=== PATIENT | female | born 1995 | race Caucasian/White ===

== ENCOUNTER → 2017-06-14 | Outpatient (CLI) | payer BC ==
--- NOTE | 2017-06-14 10:20 | Diagnostic Imaging Report ---
PROCEDURE: US Gallbladder. TECHNIQUE: Multiple real-time grayscale images were obtained over the right upper quadrant in various projections. INDICATION: Pain. FINDINGS: Liver appeared normal. The gallbladder normal. There is no bile duct dilatation. The pancreas had an unremarkable appearance where visualized. There is no intra-or extrahepatic bile duct dilatation and the unobstructed right kidney is normal in size, cortical thickness and echotexture. There is no ascites. IMPRESSION: Normal right upper quadrant ultrasound. Dictated by: Dictated on workstation # [id number]
== END ==
LOC: RAD 09:38
PROVIDERS: ATTEND Family Medicine
DX: R10.9 Unspecified abdominal pain (principal)
CPT/HCPCS: 76705

== ENCOUNTER → 2020-09-17 | Outpatient (CLI) | payer BC, OTHER | LOC: MERGE 09:33 → LABNPT 09:33 | PROVIDERS: ATTEND Obstetrics & Gynecology | DX: Z34.03 Encounter for supervision of normal first pregnancy, third trimester (principal); Z3A.00 Weeks of gestation of pregnancy not specified | CPT/HCPCS: 82570; 84156 ==

== ENCOUNTER → 2020-10-04 | Outpatient (CLI) | payer BC ==
[2020-10-06 06:15] LABS: URINE CREATININE FOR RATIO 29 MG/DL (30-125); URINE PROTEIN FOR RATIO ONLY < 6 MG/DL (6-12)
== END ==
LOC: LABNPT 16:22
PROVIDERS: ATTEND Obstetrics & Gynecology
DX: O14.93 Unspecified pre-eclampsia, third trimester (principal)
CPT/HCPCS: 82570; 84156

== ENCOUNTER 2020-10-28 07:00 | Inpatient (IN) | payer BC ==
[~2020-10-28] VITALS: Ht 175.3 cm; Wt 77.3 kg
[2020-10-28] VITALS (58 sets, daily range): BP systolic 105–150; BP diastolic 60–91
[2020-10-28] MEDS ORDERED: WATER (STERILE) FOR INJECTION 20 ML ONE (07:47)
[2020-10-28] MEDS ORDERED: AMPICILLIN 2,000 MG/14.8 ML (IV USE) ONE (07:47)
[2020-10-28 07:58] LABS: BASOPHILS % (AUTO) 0 % (0-10); EOSINOPHILS % (AUTO) 1 % (0-10); HEMATOCRIT 42 % (35-52); HEMOGLOBIN 14.2 g/dL (11.5-16.0); LYMPHOCYTES # (AUTO) 1.2 10^3/uL (1.0-4.0); LYMPHOCYTES % (AUTO) 19 % (12-44); MEAN CORPUSCULAR HEMOGLOBIN 31 pg (25-34); MEAN CORPUSCULAR HGB CONC 34 g/dL (32-36); MEAN CORPUSCULAR VOLUME 92 fL (80-99); MEAN PLATELET VOLUME 11.7 fL (9.0-12.2); MONOCYTES # (AUTO) 0.3 10^3/uL (0.0-1.0); MONOCYTES % (AUTO) 5 % (0-12); NEUTROPHILS # (AUTO) 4.7 10^3/uL (1.8-7.8); NEUTROPHILS % (AUTO) 75 % (42-75); PLATELET COUNT 166 10^3/uL (130-400); WHITE BLOOD COUNT 6.3 10^3/uL (4.3-11.0)
[2020-10-28] MEDS ORDERED: OXYTOCIN PRE-MIX DRIP 500 ML IV SCH ×3 (08:00→19:45)
[2020-10-28] MEDS ORDERED: LIDOCAINE/EPI 2% 1:200,00 (XYLOCAINE) 20 ML VIAL INJ PRN (08:00)
[2020-10-28] MEDS ORDERED: AMPICILLIN FOR IV USE 2,000 MG in WATER (STERILE) FOR INJECTION 14.8 ML IV SCH (08:00)
[2020-10-28] MEDS: D5 LR IV SOLUTION 1,000 ML IV SCH ×2 (08:03→15:48)
[2020-10-28 08:55] LABS: BILIRUBIN,URINE NEGATIVE (NEGATIVE); CLARITY,URINE SL CLOUDY; COLOR,URINE YELLOW; GLUCOSE, URINE (UA) NEGATIVE (NEGATIVE); KETONES,URINE NEGATIVE (NEGATIVE); LEUKOCYTE ESTERASE ,URINE 3+ (NEGATIVE); NITRITE,URINE NEGATIVE (NEGATIVE); PROTEIN,URINE NEGATIVE (NEGATIVE)
[2020-10-28 09:09] LABS: BACTERIA,URINE FEW /HPF; WBC,URINE 50-100 /HPF
--- NOTE | 2020-10-28 09:45 | History & Physical ---
History and Physical Date Seen by Provider: October 28, 2020 Time Seen by Provider: 09:43 This patient is a 25-year-old 1 white female who presents for induction of labor. Her is complicated by her history of optical stroke. Patient is on chronic anticoagulation with Lovenox. Her last dose of Lovenox was yesterday morning. She has held her Lovenox now pending delivery Patient denies rupture membranes or bleeding. She did have a group B strep culture at 35 weeks gestation that was returned positive. Allergies are to azithromycin Medications are vitamins and until yesterday morning Lovenox 40 mg subcu daily Medical social and surgical history is all per the antepartum record HEENT exam is normal Neck is supple no lymphadenopathy no thyromegaly Abdomen is gravid soft nontender nondistended Extremities show no clubbing cyanosis. There is no Homans' sign. Pelvic exam shows a cervix now 1 cm dilated 50% effaced 0-1 station vertex presentation with intact membranes. Amniotomy was attempted monitor shows occasional contractions now with patient currently on Pitocin. There is a normal heart rate pattern Assessment and plan term at 38 weeks gestation in a patient with history of chronic anticoagulation secondary to optical stroke. Her anticoagulation has been held in anticipation of induction this morning which is ongoing now with Pitocin. We anticipate a vaginal delivery but would be prepared for if needed 38-week complicated by chronic anticoagulation Allergies and Home Medications Allergies Coded Allergies: azithromycin (Verified Allergy, Unknown, 10/28/20) Superficial blood clots Patient Home Medication List Home Medication List Reviewed: Yes GRETA BROCK MD October 28, 2020 09:45
[2020-10-28] MEDS ORDERED: PREN1TAB79 PO (11:00)
[2020-10-28] MEDS ORDERED: ENOX40DI13 SQ (11:00)
[2020-10-28] MEDS: AMPICILLIN FOR IV USE 1,000 MG in WATER (STERILE) FOR INJECTION 7.4 ML IV SCH ×2 (12:05→15:48)
[2020-10-28] MEDS ORDERED: fentaNYL 2 mcg/ml BUPIVA 0.125 100 ML ONE (14:35)
[2020-10-28] MEDS ORDERED: fentaNYL INJ 100 MCG/2 ML AMP ONE (15:06)
[2020-10-28] MEDS ORDERED: BUPIVACAINE 0.25% 30 ML (SENSORCAINE) VIAL ONE (15:06)
[2020-10-28] MEDS: CATHETER FLUSH 10 ML SYR IV SCH (15:49)
[2020-10-28] MEDS ORDERED: EPIDURAL (fentaNYL 2 MCG/ML BUPIVA 0.125%)100 ML BAG EPI PRN (16:15)
[2020-10-28] MEDS ORDERED: diphenhydrAMINE 50 MG/ML INJ (BENADRYL) IV PRN (16:15)
[2020-10-28] MEDS ORDERED: METOCLOPRAMIDE INJ 10 MG/2 ML (REGLAN) IV PRN (16:15)
[2020-10-28] MEDS ORDERED: NALOXONE 0.4 MG/ML 1 ML (NARCAN) VIAL IV PRN ×2 (16:15)
[2020-10-28] MEDS ORDERED: ONDANSETRON 4 MG/2 ML (SDV) Z0FRAN IV PRN (16:15)
[2020-10-28] MEDS ORDERED: LACTATED RINGERS 1,000 ML IV SCH (16:15)
[2020-10-28] MEDS ORDERED: METHYLERGONOVINE 0.2 MG/ML (METHERGINE) AMP ONE (19:01)
[2020-10-28] MEDS ORDERED: ONDANSETRON 4 MG/2 ML (SDV) Z0FRAN IVP PRN (19:45)
[2020-10-28] MEDS ORDERED: BENZOCAINE/MENTHOL (DERMOPLAST) 56 ML CAN TP PRN (19:45)
[2020-10-28] MEDS ORDERED: METHYLERGONOVINE 0.2 MG/ML (METHERGINE) AMP IM ONE (19:45)
[2020-10-28] MEDS ORDERED: MEASLES,MUMPS,RUBELLA 1 EA INJ SC ONE (19:45)
[2020-10-28] MEDS ORDERED: oxyCODONE/APAP 5/325MG (PERCOCET 5) TABLET PO PRN (19:45)
[2020-10-28] MEDS: KETOROLAC 30 MG/ML VIAL IVP SCH (21:00)
[2020-10-28] MEDS: DOCUSATE SODIUM 100 MG (COLACE) CAP PO SCH (22:42)
[2020-10-28] MEDS ORDERED: WITCH HAZEL(TUCKS) 40 EA JAR TOP PRN (23:45)
[2020-10-28] MEDS ORDERED: DIBUCAINE 1% OINTMENT 30 GM TUBE TOP PRN (23:45)
[2020-10-29] MEDS: CATHETER FLUSH 10 ML SYR IV SCH (01:44)
--- NOTE | 2020-10-29 02:09 | OPERATIVE REPORT ---
DATE OF SERVICE: 10/28/2020 DELIVERY NOTE The patient delivered by term spontaneous vaginal delivery a viable female infant with Apgars of 8 and 9 at 1 and 5 minutes respectively, weight of 6 pounds 5 ounces, time of 1859 and a cord blood pH of 7.30. The infant was delivered over multiple lacerations as well as a partial midline episiotomy. The patient sustained bilateral periurethral lacerations, several lacerations of the hymen and of the posterior fourchette. Episiotomy was performed as the entire perineum and introitus was beginning to shred in multiple areas and directions, the episiotomy allowed for control of the separation of the tissue. The delivery was accomplished fairly promptly after enough relaxation had occurred in the canal as a result of the tearing, shredding, and the episiotomy. The was bulb suctioned on delivery of the head and again on completion of delivery. Umbilical cord when pulseless was doubly clamped, father cut the cord, the baby was passed to mom's abdomen. The placenta delivered fairly promptly spontaneously Kristal. The patient had a fairly notable uterine atony with brisk bleeding that responded transiently to manual manipulation of the uterus and IV Pitocin; however, recurred fairly promptly with the blood loss approximately 500 mL. The patient was given a single dose of IM Methergine and the uterine cavity was explored. There was some membranes adherent in the uterine cavity that were removed with ring clamps. The uterus contracted nicely and then stayed contracted nicely since that time. The perineal lacerations and right sulcus laceration as well as the partial episiotomy was repaired in the usual manner with a single suture of 3-0 Vicryl Rapide. Good reapproximation was achieved. There were several small superficial lacerations in the posterior fourchette and then the lateral vaginal jovel that were hemostatic, were not full thickness and were left to heal on their own. There was a 1 to 1.5 cm full thickness laceration, right periurethral that was bleeding. This was repaired with 3-0 Vicryl Rapide suture as well and there was a laceration extending to the full length of the introitus on the left medial to the left labia minora superficially and majora inferiorly. This was full thickness as well and it was repaired with a running locked suture of 3-0 Vicryl Rapide. Good hemostasis was achieved. Good reapproximation of the repair sites was achieved. The patient tolerated the repair well. The delivery and repair were accomplished under the episiotomy with augmented in the repair sites with 1% lidocaine with epinephrine. A total of 20 mL was used. Sponge and needle counts were correct on completion of delivery and repair. Blood loss was estimated around 500 mL. The patient tolerated the delivery well and remained in the LDR for recovery. The baby remained in the LDR with the mom. Job ID: [id number] DocumentID: [id number] Dictated Date: 10/28/2020 19:30:59 Shake Splitter Date: 10/29/2020 02:08:34 Dictated By: GRETA BROCK MD MTDD
[2020-10-29] MEDS: KETOROLAC 30 MG/ML VIAL IVP SCH (04:59)
[2020-10-29 05:00] VITALS: BP 105/67
[2020-10-29] MEDS ORDERED: OXYC1TAB87 PO (07:40)
[2020-10-29] MEDS ORDERED: IBUP-1780 PO (07:40)
[2020-10-29] MEDS ORDERED: DCS100C PO (07:40)
--- NOTE | 2020-10-29 07:41 | Discharge Inst-Surgical ---
Discharge Inst-Surgical Depart Medication/Instructions New, Converted or Re-Newed RX: RX on Chart Consults/Follow Up Patient Instructions: As directed Orders & Referrals Follow Up Appt: Call to make follow up appt. for patient in 4 weeks. Activity Per routine post vaginal delivery instructions. Please call in RX to patient pharmacy. Diet as tolerated Patient may shower or tub bathe as desired. Activity Activity as Tolerated: No Diet Discharge Diet: No Restrictions GRETA BROCK MD October 29, 2020 07:41
--- NOTE | 2020-10-29 07:46 | Progress Note ---
Standard Progress Note Progress Notes/Assess & Plan Date Seen by a Provider: October 29, 2020 Time Seen by a Provider: 07:45 Progress/Assessment & Plan This patient is without complaint. She is ambulating, voiding, tolerating oral intake and has good pain control. Vital Signs 10/28/20 10/29/20 18:45 05:00 Temp 36.9 Pulse 75 Resp 18 B/P (MAP) 105/67 (80) Pulse Ox 100 O2 Delivery Room Air Vital signs are stable. Patient is afebrile. This is firm below the umbilicus and nontender. Extremities show no clubbing or cyanosis. There is no Homans' sign. Assessment and plan day #1 status post term spontaneous vaginal delivery at 38 weeks gestation. Patient is doing well will have routine convalescent care Final Diagnosis 38-week spontaneous vaginal delivery GRETA BROCK MD October 29, 2020 07:46
[2020-10-29] MEDS: DOCUSATE SODIUM 100 MG (COLACE) CAP PO SCH ×2 (09:08→20:52)
[2020-10-29 09:13] VITALS: BP 109/68
[2020-10-29] MEDS ORDERED: IBUPROFEN 800 MG (MOTRIN) TAB PO ONE (11:16)
[2020-10-29 12:00] VITALS: BP 121/70
[2020-10-29 12:24] LABS: BILIRUBIN,URINE NEGATIVE (NEGATIVE); CLARITY,URINE CLEAR; COLOR,URINE YELLOW; GLUCOSE, URINE (UA) NEGATIVE (NEGATIVE); KETONES,URINE NEGATIVE (NEGATIVE); LEUKOCYTE ESTERASE ,URINE NEGATIVE (NEGATIVE); NITRITE,URINE NEGATIVE (NEGATIVE); PH,URINE 6.5 (5-9); PROTEIN,URINE NEGATIVE (NEGATIVE)
[2020-10-29 12:31] LABS: BACTERIA,URINE NEGATIVE /HPF; SQUAMOUS EPITHELIAL CELL,UR RARE /HPF
[2020-10-29 16:45] VITALS: BP 117/71
[2020-10-29] MEDS: IBUPROFEN 800 MG (MOTRIN) TAB PO SCH (19:58)
[2020-10-29 20:49] VITALS: BP 108/71
[2020-10-30] MEDS: IBUPROFEN 800 MG (MOTRIN) TAB PO SCH ×2 (02:09→09:11)
[2020-10-30 02:14] VITALS: BP 90/55
[2020-10-30 06:22] VITALS: BP 93/50
[2020-10-30 09:00] VITALS: BP 117/62
[2020-10-30] MEDS: DOCUSATE SODIUM 100 MG (COLACE) CAP PO SCH (09:11)
== END 2020-10-30 14:35 | disposition home or self-care (01) | DRG 806 ==
LOC: LDRP 07:01
PROVIDERS: ADMIT Obstetrics & Gynecology; ATTEND Obstetrics & Gynecology
PROC: 10E0XZZ Delivery of Products of Conception, External Approach (ICD-10-PCS; principal; 2020-10-28)
PROC: 0W8NXZZ Division of Female Perineum, External Approach (ICD-10-PCS; 2020-10-28)
PROC: 3E033VJ Introduction of Other Hormone into Peripheral Vein, Percutaneous Approach (ICD-10-PCS; 2020-10-28)
DX: O99.12 Other diseases of the blood and blood-forming organs and certain disorders involving the immune mechanism complicating childbirth (principal); D68.318 Other hemorrhagic disorder due to intrinsic circulating anticoagulants, antibodies, or inhibitors; Z37.0 Single live birth; Z3A.38 38 weeks gestation of pregnancy
CPT/HCPCS: 36415; 81000; 85025; 86850; 86900; 86901; 87088

== ENCOUNTER 2022-03-31 07:00 | Inpatient (IN) | payer BC ==
[~2022-03-31] VITALS: Ht 175.3 cm; Wt 80.8 kg
[2022-03-31] VITALS (50 sets, daily range): BP systolic 100–135; BP diastolic 56–89
[~2022-03-31 07:00] MED LIST: DOCU-239 PO; ENOX40DI13 SQ; IBUP-1780 PO; OXYC1TAB87 PO; PREN1TAB79 PO
--- OUTSIDE RECORDS SUMMARY | 2022-03-31 07:13 | XMS REPORT | Clinical Summary ---
Author Author [facility] Organization [facility] Address Unknown Phone Unavailable Care Team Providers Care [employer] Name Role Phone No Pcp, Na PCP Unavailable Source Comments Some departments are not documenting in the electronic medical record. If you d o not see the information that you expected, contact Release of Information in [facility] Information Management department at [phone] for further assistan ce in locating additional records.[facility] Allergies Comments Active Allergy Reactions Severity Noted Date Superficial blood clots per pt Azithromycin SEE COMMENTS Low 04/13/2021 Medications Not on file Active Problems Not on file Social History Date Tobacco Use Types Packs/Day Years Used Never Assessed Sex Assigned at Date Recorded Not on file Last Filed Vital Signs Not on file Plan of Treatment Health Maintenance Due Date Last Done Comments COVID-19 VACCINE (#1) 1994 HIV SCREENING 2009 DTAP/TDAP VACCINES (1 - 2012 Tdap) HEPATITIS C SCREENING 2012 PHYSICAL (COMPREHENSIVE) 2012 EXAM CERVICAL CANCER SCREENING 2015 DEPRESSION SCREENING 06/04/2021 INFLUENZA VACCINE 01/02/2022 HPV VACCINES Aged Out No longer eligible based on patient's age to complete this topic Results Not on filefrom Last 3 Months Insurance Type Payer Benefit Subscriber ID Effective Phone Address Plan / Dates Group Indemnity [facility] [id number] 2020-P [id number] [place] [phone] Care Teams Start Date End Date Cord [employer] Builder Relationship Specialty 11/19/19 No Pcp, Na PCP - General
[2022-03-31] MEDS ORDERED: OXYTOCIN PRE-MIX DRIP 500 ML IV SCH ×2 (07:30→16:45)
[2022-03-31] MEDS: D5 LR IV SOLUTION 1,000 ML IV SCH ×2 (08:00→14:30)
[2022-03-31 08:06] LABS: BASOPHILS % (AUTO) 0 % (0-10); EOSINOPHILS % (AUTO) 1 % (0-10); HEMATOCRIT 36 % (35-52); HEMOGLOBIN 11.6 g/dL (11.5-16.0); LYMPHOCYTES # (AUTO) 1.8 10^3/uL (1.0-4.0); LYMPHOCYTES % (AUTO) 21 % (12-44); MEAN CORPUSCULAR HEMOGLOBIN 29 pg (25-34); MEAN CORPUSCULAR HGB CONC 32 g/dL (32-36); MEAN CORPUSCULAR VOLUME 89 fL (80-99); MEAN PLATELET VOLUME 12.3 fL (9.0-12.2); MONOCYTES # (AUTO) 0.6 10^3/uL (0.0-1.0); MONOCYTES % (AUTO) 6 % (0-12); NEUTROPHILS # (AUTO) 6.2 10^3/uL (1.8-7.8); NEUTROPHILS % (AUTO) 72 % (42-75); PLATELET COUNT 152 10^3/uL (130-400); WHITE BLOOD COUNT 8.7 10^3/uL (4.3-11.0)
--- NOTE | 2022-03-31 09:41 | History & Physical ---
History and Physical Date Seen by Provider: Mar 31, 2022 Time Seen by Provider: 07:00 [place] for control of her seizures. She is under the care of neurologyWho manages that medication. She has had seizures during this and currently has been stable for at least more than a few weeks with a increase in her Keppra at around that time. Patient denies discharge or bleeding she denies rupture membranes. Her GBS culture was negative. Her last injection of Lovenox was yesterday morningBeen over 24 hours since her last dose of anticoagulant ,Allergies are to azithromycin Medications are vitamins subcu Lovenox and Keppra Medical social and surgical history are per the antepartum record HEENT exam is normal Neck is supple no lymphadenopathy no thyromegaly Abdomen is gravid soft nontender nondistended Extremities show no clubbing cyanosis. There is no Homans' sign. Pelvic exam now shows a cervix 3 cm dilated 50 to 60% effaced very soft somewhat stretchy vertex presentation with intact membranes. Amniotomy was performed with release of clear fluid. Laboratory Tests Test 03/31/22 07:50 Range/Units White Blood Count 8.7 4.3-11.0 10^3/uL Red Blood Count 4.03 3.80-5.11 10^6/uL Hemoglobin 11.6 11.5-16.0 g/dL Hematocrit 36 35-52 % Mean Corpuscular Volume 89 80-99 fL Mean Corpuscular Hemoglobin 29 25-34 pg Mean Corpuscular Hemoglobin Concent 32 32-36 g/dL Red Cell Distribution Width 13.1 10.0-14.5 % Platelet Count 152 130-400 10^3/uL Mean Platelet Volume 12.3 H 9.0-12.2 fL Immature Granulocyte % (Auto) 1 % Neutrophils (%) (Auto) 72 42-75 % Lymphocytes (%) (Auto) 21 12-44 % Monocytes (%) (Auto) 6 0-12 % Eosinophils (%) (Auto) 1 0-10 % Basophils (%) (Auto) 0 0-10 % Neutrophils # (Auto) 6.2 1.8-7.8 10^3/uL Lymphocytes # (Auto) 1.8 1.0-4.0 10^3/uL Monocytes # (Auto) 0.6 0.0-1.0 10^3/uL Eosinophils # (Auto) 0.0 0.0-0.3 10^3/uL Basophils # (Auto) 0.0 0.0-0.1 10^3/uL Immature Granulocyte # (Auto) 0.0 0.0-0.1 10^3/uL monitor shows a category 1 heart rate pattern with contractions about every 2 to 3 minutes. Pitocin is currently on 12 or 14 Assessment and plan 37+ weeks gestation history of seizure disorder as well as requirement for chronic anticoagulation due to history of optic stroke. Patient is admitted now for induction of labor. We anticipate a vaginal delivery. Plan will be to resume her Lovenox likely on day 2 37 weeks with history of optical stroke chronic anticoagulation as well as history of seizure disorder Allergies and Home Medications Allergies Coded Allergies: azithromycin (Verified Allergy, Unknown, 10/28/20) Superficial blood clots Patient Home Medication List Home Medication List Reviewed: Yes Docusate Sodium (Dok) 100 Mg Capsule, 100 MG PO BID Prescribed by: GRETA ESPARZA on 10/29/20 0740 Enoxaparin Sodium (Lovenox) 40 Mg/0.4 Ml Syringe, 40 MG SQ DAILY, (Reported) Entered as Reported by: KASANDRA BRODERICK on 10/28/20 1100 Ibuprofen (Ibuprofen) 800 Mg Tablet, 800 MG PO Q6H Prescribed by: GRETA ESPARZA on 10/29/20 0740 Oxycodone HCl/Acetaminophen (Percocet 5-325 mg Tablet) 1 Each Tablet, 1 TAB PO Q4H PRN for PAIN-MODERATE (5-7) Prescribed by: GRETA ESPARZA on 10/29/20 0740 Vit W-Ca,Fe,FA(<1 mg) ( Vitamins) 1 Each Tablet, 1 EACH PO DAILY, (Reported) Entered as Reported by: KAASNDRA BRODERICK on 10/28/20 1100 GRETA BROCK MD Mar 31, 2022 09:41
[2022-03-31] MEDS ORDERED: fentaNYL 2 mcg/ml BUPIVA 0.125 100 ML ONE (12:32)
[2022-03-31] MEDS ORDERED: fentaNYL INJ 100 MCG/2 ML AMP ONE (12:59)
[2022-03-31] MEDS ORDERED: BUPIVACAINE 0.25% 30 ML (SENSORCAINE) VIAL ONE (12:59)
[2022-03-31] MEDS ORDERED: fentaNYL 2 mcg/ml BUPIVA 0.125 100 ML IV SCH (13:45)
[2022-03-31] MEDS ORDERED: CATHETER FLUSH 10 ML SYR IV PRN (13:45)
[2022-03-31] MEDS ORDERED: ONDANSETRON 4 MG/2 ML (SDV) Z0FRAN IV PRN (13:45)
[2022-03-31] MEDS ORDERED: LACTATED RINGERS 1,000 ML IV ONE (13:45)
[2022-03-31] MEDS ORDERED: NALOXONE 0.4 MG/ML 1 ML (NARCAN) VIAL IV PRN (13:45)
[2022-03-31] MEDS ORDERED: diphenhydrAMINE 50 MG/ML INJ (BENADRYL) IV PRN (13:45)
[2022-03-31] MEDS ORDERED: CATHETER FLUSH 10 ML SYR IV SCH (14:00)
[2022-03-31] MEDS ORDERED: LIDOCAINE 1% INJ 10 ML VIAL ONE (14:45)
--- NOTE | 2022-03-31 15:29 | OB Labor & Delivery Record ---
Labor & Delivery This patient delivered by term spontaneous vaginal delivery of viableMale infant with Apgars of 8 and 9 at 1 and 5 respectively weight of 7 pounds 2 ounces time of 1455 and a cord blood pH of 7.25. The infant was delivered over a second-degree perineal laceration that occurred after a midline episiotomy was performed. There was a single nuchal cord that was easily released. Infant was bulb suctioned on delivery of the head and again on completion of delivery. Umbilical cord went pulses was doubly clamped the father cut the cord the baby was passed to mom's abdomen. TheCord bloods were obtained placenta delivered spontaneously [facility] and was normal with a three-vessel cord. Placenta was sent to pathology permanent section. Cervix vagina rectum perineum were examined and found intact except for the second-degree perineal laceration that was repaired with a single suture of 3-0 Vicryl repeat in the usual manner to good hemostasis good reapproximation. The epidural anesthesia was augmented with 1% lidocaine in the perineal body for the repair. Sponge needle counts were correct on completion of delivery and repair. Blood loss was around 300 cc. The patient tolerated procedure well remained in the LDR for recovery the baby remained with the mom. GRETA BROCK MD Mar 31, 2022 15:29
[2022-03-31] MEDS ORDERED: ONDANSETRON 4 MG/2 ML (SDV) Z0FRAN IVP ONE (15:30)
[2022-03-31] MEDS ORDERED: IBUP-1780 PO ×2 (15:40→15:42)
[2022-03-31] MEDS ORDERED: OXYC1TAB87 PO (15:40)
--- NOTE | 2022-03-31 15:41 | Discharge Inst-Surgical ---
Discharge Inst-Surgical Depart Medication/Instructions New, Converted or Re-Newed RX: Transmitted to Pharmacy Consults/Follow Up Patient Instructions: As directed Orders & Referrals Follow Up Appt: Call to make follow up appt. for patient in 4 weeks. Activity Per routine post vaginal delivery instructions. Diet as tolerated Patient may shower or tub bathe as desired. Activity Activity as Tolerated: No Diet Discharge Diet: No Restrictions GRETA BROCK MD Mar 31, 2022 15:41
[2022-03-31] MEDS ORDERED: DOCU-143 PO (15:42)
[2022-03-31] MEDS ORDERED: OXYC-199 PO (15:42)
[2022-03-31] MEDS ORDERED: ONDANSETRON 4 MG/2 ML (SDV) Z0FRAN IVP PRN (16:45)
[2022-03-31] MEDS ORDERED: LIDOCAINE 1% INJ 10 ML VIAL INJ ONE (16:45)
[2022-03-31] MEDS: KETOROLAC 30 MG/ML VIAL IV SCH ×2 (16:45→19:52)
[2022-03-31] MEDS ORDERED: TETANUS,DIPTH,PERTUSS P/F (BOOSTRIX) 0.5 ML VIAL IM ONE (16:45)
[2022-03-31] MEDS ORDERED: BENZOCAINE/MENTHOL (DERMOPLAST) 56 ML CAN TP PRN (16:45)
[2022-03-31] MEDS ORDERED: oxyCODONE/APAP 5/325MG (PERCOCET 5) TABLET PO PRN (16:45)
[2022-03-31] MEDS: DOCUSATE SODIUM 100 MG (COLACE) CAP PO SCH (19:53)
[2022-04-01] MEDS: KETOROLAC 30 MG/ML VIAL IV SCH (02:13)
[2022-04-01 04:15] VITALS: BP 102/62
[2022-04-01] MEDS ORDERED: IBUPROFEN 800 MG (MOTRIN) TAB PO ONE ×2 (08:18→14:36)
[2022-04-01 08:22] VITALS: BP 119/75
[2022-04-01] MEDS: DOCUSATE SODIUM 100 MG (COLACE) CAP PO SCH ×2 (08:23→20:05)
[2022-04-01] MEDS: IBUPROFEN 800 MG (MOTRIN) TAB PO SCH ×3 (08:23→20:05)
--- NOTE | 2022-04-01 08:55 | Progress Note ---
Standard Progress Note Progress Notes/Assess & Plan Date Seen by a Provider: Apr 01, 2022 Time Seen by a Provider: 08:53 Progress/Assessment & Plan This patient is without complaint. She is ambulating, voiding, tolerating oral intake well and has good pain control. Patient denies chest pain, denies shortness of breath, denies nausea or vomiting, and denies headache. Vital Signs Date Time Temp Pulse Resp B/P (MAP) Pulse Ox O2 Delivery O2 Flow Rate FiO2 04/01/22 08:22 36.7 67 16 119/75 (90) 100 Room Air 04/01/22 04:15 36.7 71 16 102/62 (75) 98 Room Air 03/31/22 23:30 36.7 69 16 107/56 (73) 98 Room Air 03/31/22 19:50 36.4 66 16 108/57 (74) 98 Room Air 03/31/22 17:15 71 16 112/70 (84) Room Air 03/31/22 17:00 64 16 113/73 (86) Room Air 03/31/22 16:46 63 16 123/75 (91) Room Air 03/31/22 16:31 70 16 109/73 (85) Room Air 03/31/22 16:16 87 16 105/74 (84) Room Air 03/31/22 16:01 69 16 102/64 (77) Room Air 03/31/22 15:46 66 18 106/68 (81) Room Air 03/31/22 15:31 65 18 104/64 (77) Room Air 03/31/22 15:23 65 18 114/64 (81) Room Air 03/31/22 15:18 75 18 100/67 (78) Room Air 03/31/22 15:16 91 18 104/56 (72) Room Air 03/31/22 15:01 69 20 119/72 (88) Room Air 03/31/22 14:48 72 20 121/67 (85) Room Air 03/31/22 14:30 73 20 117/78 (91) Room Air 03/31/22 14:17 36.6 67 18 113/66 (82) 97 Room Air 03/31/22 13:46 69 18 112/66 (81) 97 Room Air 03/31/22 13:43 67 18 117/72 (87) 96 Room Air 03/31/22 13:40 71 18 110/66 (81) 96 Room Air 03/31/22 13:37 73 18 129/81 (97) 97 Room Air 03/31/22 13:34 74 18 128/77 (94) 97 Room Air 03/31/22 13:31 67 18 128/76 (93) 97 Room Air 03/31/22 13:27 80 18 133/83 (100) 97 Room Air 03/31/22 13:24 80 18 132/84 (100) 98 Room Air 03/31/22 13:21 69 18 123/77 (92) 98 Room Air 03/31/22 13:18 76 18 119/80 (93) 100 Room Air 03/31/22 13:15 76 18 124/80 (95) 100 Room Air 03/31/22 13:12 82 18 125/76 (92) 100 Room Air 03/31/22 13:09 80 18 126/80 (95) 100 Room Air 03/31/22 13:06 78 18 119/78 (92) 100 Room Air 03/31/22 13:00 36.5 71 18 120/78 (92) Room Air 03/31/22 12:45 71 18 120/79 (93) Room Air 03/31/22 12:30 80 18 119/72 (88) Room Air 03/31/22 12:15 68 18 100/59 (73) Room Air 03/31/22 12:00 67 18 105/65 (78) Room Air 03/31/22 11:45 71 18 108/72 (84) Room Air 03/31/22 11:30 67 18 117/78 (91) Room Air 03/31/22 11:15 36.8 83 18 135/89 (104) Room Air 03/31/22 11:00 82 18 131/62 (85) Room Air 03/31/22 10:45 82 16 120/70 (87) Room Air 03/31/22 10:30 72 16 112/70 (84) Room Air 03/31/22 10:15 72 16 110/68 (82) Room Air 03/31/22 10:00 73 16 115/69 (84) Room Air 03/31/22 09:45 76 18 110/70 (83) Room Air 03/31/22 09:30 71 18 109/68 (82) Room Air 03/31/22 09:14 73 16 121/66 (84) Room Air 03/31/22 08:58 81 16 121/70 (87) Room Air I & O 04/01/22 07:00 Intake Total 2500 ml Balance 2500 ml Vital signs are stable. Patient is afebrile. The abdomen is benign. The fundus is firm below the umbilicus and nontender. Extremities show no clubbing or cyanosis. There is no Homans' sign. Assessment and plan day #1 status post term spontaneous vaginal livery doing well. Patient is to resume and continue her antiseizure medication and she should resume her Lovenox for anticoagulation tomorrow. Plan is otherwise for routine convalescent care and consider for discharge home tomorrow as well GRETA BROCK MD Apr 01, 2022 08:55
[2022-04-01] MEDS ORDERED: IBUPROFEN 600 MG (MOTRIN) TAB PO ONE (14:35)
[2022-04-01 14:38] VITALS: BP 118/75
--- NOTE | 2022-04-01 18:25 | Anesthesia-Regional Post-Op ---
Regional Patient Condition Mental Status: Alert, Oriented x3 Circulation: Same as Pre-Op Headache: Absent Sensation: Full Recovery Motor Block: Absent Post Op Complications Complications None Follow Up Care/Instructions Patient Instructions None needed. Anesthesia/Patient Condition Patient is doing well, no complaints, stable vital signs, no apparent adverse anesthesia problems. No complications reported per nursing. MICH KHAN CRNA Apr 01, 2022 18:25
[2022-04-01 18:40] VITALS: BP 112/67
[2022-04-01 20:06] VITALS: BP 117/74
[2022-04-02 02:19] VITALS: BP 106/61
[2022-04-02] MEDS: IBUPROFEN 800 MG (MOTRIN) TAB PO SCH ×2 (02:20→10:16)
[2022-04-02] MEDS: KETOROLAC 30 MG/ML VIAL IV SCH (07:35)
--- NOTE | 2022-04-02 09:42 | Progress Note ---
Standard Progress Note Progress Notes/Assess & Plan Date Seen by a Provider: Apr 02, 2022 Time Seen by a Provider: 09:40 Progress/Assessment & Plan This patient is without complaint. She is ambulating, voiding, tolerating oral intake well and has good pain control. Patient denies chest pain, denies shortness of breath, denies nausea or vomiting, and denies headache. Vital Signs Date Time Temp Pulse Resp B/P (MAP) Pulse Ox O2 Delivery O2 Flow Rate FiO2 04/01/22 08:22 36.7 67 16 119/75 (90) 100 Room Air 04/01/22 04:15 36.7 71 16 102/62 (75) 98 Room Air 03/31/22 23:30 36.7 69 16 107/56 (73) 98 Room Air 03/31/22 19:50 36.4 66 16 108/57 (74) 98 Room Air 03/31/22 17:15 71 16 112/70 (84) Room Air 03/31/22 17:00 64 16 113/73 (86) Room Air 03/31/22 16:46 63 16 123/75 (91) Room Air 03/31/22 16:31 70 16 109/73 (85) Room Air 03/31/22 16:16 87 16 105/74 (84) Room Air 03/31/22 16:01 69 16 102/64 (77) Room Air 03/31/22 15:46 66 18 106/68 (81) Room Air 03/31/22 15:31 65 18 104/64 (77) Room Air 03/31/22 15:23 65 18 114/64 (81) Room Air 03/31/22 15:18 75 18 100/67 (78) Room Air 03/31/22 15:16 91 18 104/56 (72) Room Air 03/31/22 15:01 69 20 119/72 (88) Room Air 03/31/22 14:48 72 20 121/67 (85) Room Air 03/31/22 14:30 73 20 117/78 (91) Room Air 03/31/22 14:17 36.6 67 18 113/66 (82) 97 Room Air 03/31/22 13:46 69 18 112/66 (81) 97 Room Air 03/31/22 13:43 67 18 117/72 (87) 96 Room Air 03/31/22 13:40 71 18 110/66 (81) 96 Room Air 03/31/22 13:37 73 18 129/81 (97) 97 Room Air 03/31/22 13:34 74 18 128/77 (94) 97 Room Air 03/31/22 13:31 67 18 128/76 (93) 97 Room Air 03/31/22 13:27 80 18 133/83 (100) 97 Room Air 03/31/22 13:24 80 18 132/84 (100) 98 Room Air 03/31/22 13:21 69 18 123/77 (92) 98 Room Air 03/31/22 13:18 76 18 119/80 (93) 100 Room Air 03/31/22 13:15 76 18 124/80 (95) 100 Room Air 03/31/22 13:12 82 18 125/76 (92) 100 Room Air 03/31/22 13:09 80 18 126/80 (95) 100 Room Air 03/31/22 13:06 78 18 119/78 (92) 100 Room Air 03/31/22 13:00 36.5 71 18 120/78 (92) Room Air 03/31/22 12:45 71 18 120/79 (93) Room Air 03/31/22 12:30 80 18 119/72 (88) Room Air 03/31/22 12:15 68 18 100/59 (73) Room Air 03/31/22 12:00 67 18 105/65 (78) Room Air 03/31/22 11:45 71 18 108/72 (84) Room Air 03/31/22 11:30 67 18 117/78 (91) Room Air 03/31/22 11:15 36.8 83 18 135/89 (104) Room Air 03/31/22 11:00 82 18 131/62 (85) Room Air 03/31/22 10:45 82 16 120/70 (87) Room Air 03/31/22 10:30 72 16 112/70 (84) Room Air 03/31/22 10:15 72 16 110/68 (82) Room Air 03/31/22 10:00 73 16 115/69 (84) Room Air 03/31/22 09:45 76 18 110/70 (83) Room Air 03/31/22 09:30 71 18 109/68 (82) Room Air 03/31/22 09:14 73 16 121/66 (84) Room Air 03/31/22 08:58 81 16 121/70 (87) Room Air I & O 04/01/22 07:00 Intake Total 2500 ml Balance 2500 ml Vital signs are stable. Patient is afebrile. The abdomen is benign. The fundus is firm below the umbilicus and nontender. Extremities show no clubbing or cyanosis. There is no Homans' sign. Assessment and plan day #1 status post term spontaneous vaginal livery doing well. Patient is to resume and continue her antiseizure medication and she should resume her Lovenox for anticoagulation tomorrow. Plan is otherwise for routine convalescent care and consider for discharge home tomorrow as well April 02, 2022 Patient is without complaint. She is ambulating, voiding, tolerating oral intake well and has good pain control. Patient is requesting discharge home Vital Signs Date Time Temp Pulse Resp B/P (MAP) Pulse Ox O2 Delivery O2 Flow Rate FiO2 04/02/22 02:19 36.4 69 18 106/61 (76) 97 Room Air 04/01/22 20:06 36.1 63 18 117/74 (88) 100 Room Air 04/01/22 18:40 36.8 74 18 112/67 (82) 97 Room Air 04/01/22 14:38 36.8 71 16 118/75 (89) 98 Room Air Vital signs are stable. Patient is afebrile. Fundus is firm below the umbilicus and nontender. Extremities show no clubbing or cyanosis. There is no Homans' sign. Assessment and plan day #2 status post term spontaneous vaginal delivery patient is doing well. She will resume her home medications and will follow-up in clinic. Final Diagnosis 37-week spontaneous vaginal GRETA BROCK MD Apr 02, 2022 09:42
[2022-04-02 10:14] VITALS: BP 119/73
[2022-04-02] MEDS: DOCUSATE SODIUM 100 MG (COLACE) CAP PO SCH (10:15)
== END 2022-04-02 11:20 | disposition home or self-care (01) | DRG 807 ==
LOC: LDRP 07:11
PROVIDERS: ADMIT Obstetrics & Gynecology; ATTEND Obstetrics & Gynecology
PROC: 10E0XZZ Delivery of Products of Conception, External Approach (ICD-10-PCS; principal; 2022-03-31)
PROC: 0KQM0ZZ Repair Perineum Muscle, Open Approach (ICD-10-PCS; 2022-03-31)
PROC: 0W8NXZZ Division of Female Perineum, External Approach (ICD-10-PCS; 2022-03-31)
PROC: 3E033VJ Introduction of Other Hormone into Peripheral Vein, Percutaneous Approach (ICD-10-PCS; 2022-03-31)
DX: O99.354 Diseases of the nervous system complicating childbirth (principal); Z37.0 Single live birth; G40.909 Epilepsy, unspecified, not intractable, without status epilepticus; O70.1 Second degree perineal laceration during delivery; O69.81X0 Labor and delivery complicated by cord around neck, without compression, not applicable or unspecified; Z86.73 Personal history of transient ischemic attack (TIA), and cerebral infarction without residual deficits; Z3A.37 37 weeks gestation of pregnancy; Z88.1 Allergy status to other antibiotic agents; Z79.01 Long term (current) use of anticoagulants; Z79.899 Other long term (current) drug therapy
CPT/HCPCS: 36415; 85025; 86780; 86850; 86900; 86901